=== PATIENT | male | born 2000 | race Caucasian/White ===

== ENCOUNTER 2022-11-14 01:44 | Inpatient (IN) | payer BC ==
[~2022-11-14] VITALS: Ht 188 cm; Wt 80.0 kg
[2022-11-14] MEDS ORDERED: LACTATED RINGER'S 1,000 ML IV ONE (03:00)
[2022-11-14] MEDS ORDERED: MORPHINE SULFATE 4 MG/ML SYR/VIAL IV ONE (03:00)
[2022-11-14] MEDS ORDERED: ONDANSETRON HCL 4 MG/2 ML VIAL IV ONE (03:00)
[2022-11-14] MEDS ORDERED: IOHEXOL 300 MG/ML 100ML BOTTLE IJ ONE (03:04)
[2022-11-14 03:41] LABS: Basophils # (auto) 0.1 10 ^3/uL (0-0.2); Basophils % (auto) 0.6 % (0.0-2.0); Eosinophils # (auto) 0.2 10 ^3/uL (0-0.8); Eosinophils % (auto) 1.2 % (0.0-7.0); Hematocrit 44.5 % (41.0-53.0); Hemoglobin 15.1 g/dL (13.5-17.5); Lymphocytes # (auto) 1.5 10 ^3/uL (0.4-5.4); Mean Corpuscular Volume 85.3 fL (80.0-100.0); Monocytes # (auto) 1.2 10 ^3/uL (0-1.3); Monocytes % (auto) 7.4 % (0.0-12.0); Neutrophils # (auto) 13.3 10 ^3/uL (1.6-8.6); Neutrophils % (auto) 81.8 % (37.0-80.0); Red Blood Cells 5.22 10^6/uL (4.5-5.90); Red Cell Distribution Width 13.9 % (11.8-14.3); White Blood Cell 16.3 10^3/uL (4.4-10.8)
[2022-11-14 03:56] LABS: INR 1.08 (0.9-1.15); Partial Thromboplastin Time 25.6 sec (24.6-33.4)
[2022-11-14 03:58] LABS: Albumin 4.4 g/dL (3.4-5.0); Anion Gap 10 (5-15); Blood Alcohol < 3.0 mg/dL (0-5); Blood Urea Nitrogen 27 mg/dL (7-18); Calcium 9.6 mg/dL (8.5-10.1); Carbon Dioxide 24 mmol/L (21-32); Chloride 103 mmol/L (98-107); Glucose 107 mg/dL (74-106); Lipase 137 U/L (73-393); Potassium 3.5 mmol/L (3.5-5.1); Sodium 137 mmol/L (136-145)
[2022-11-14 04:00] LABS: Alanine Aminotransferase 20 U/L (16-61); Aspartate Aminotransferase 14 U/L (15-37); BUN/Creatinine Ratio 22.5; GFR African American 97 mL/min; GFR Non-African American 80 mL/min
[2022-11-14 04:02] LABS: Alkaline Phosphatase 61 U/L (45-117); Bilirubin, Total 0.4 mg/dL (0.2-1.0)
[2022-11-14 05:05] LABS: Urine Bacteria NONE SEEN /hpf (None Seen); Urine Blood Negative /uL (Negative); Urine Mucus FEW (None Seen); Urine Specific Gravity 1.017 (1.001-1.035); Urine WBC <1 /hpf (0 - 3)
[2022-11-14 05:13] LABS: Alcohol, Urine < 3.0 mg/dL (0-10); Amphetamine Screen, Urine NEGATIVE (NEGATIVE); Barbiturate Scree,Urine NEGATIVE (NEGATIVE); Benzodiazephine Screen, Urine NEGATIVE (NEGATIVE); Cannabinoid Screen, Urine NEGATIVE (NEGATIVE); Cocaine Screen, Urine NEGATIVE (NEGATIVE); Opiate Scree,Urine NEGATIVE (NEGATIVE); Phencyclidine Screen, Urine NEGATIVE (NEGATIVE)
[2022-11-14] MEDS ORDERED: SODIUM CHLORIDE 0.9% 1,000 ML IV SCH (10:45)
[2022-11-14] MEDS ORDERED: ONDANSETRON HCL 4 MG/2 ML VIAL IV PRN (10:45)
[2022-11-14] MEDS ORDERED: MORPHINE SULFATE INJ 2 MG/ml SYRG IV PRN (10:45)
[2022-11-14] MEDS ORDERED: DOCUSATE SOD 100 MG CAP PO PRN (10:45)
[2022-11-14] MEDS ORDERED: TETANUS-DIPTH-ACEL PERTUSSIS 0.5ML SYR Tdap IM ONE (11:00)
[2022-11-14 14:00] VITALS: BP 138/65
[2022-11-14] MEDS ORDERED: NEOMYCIN-BACITRACIN-POLYM 15GM TOP OINT TOP SCH (22:00)
[2022-11-15] MEDS ORDERED: ENOXAPARIN SOD 40 MG/0.4 ML SYRINGE SC SCH (10:00)
[2022-11-15] MEDS ORDERED: PANTOPRAZOLE 40 MG TAB PO SCH (10:00)
== END 2022-11-14 17:15 | disposition left against medical advice (07) | DRG 605 ==
LOC: ER 01:44 → OVERFLOW 10:37
PROVIDERS: ADMIT Nurse Practitioner Family; ATTEND Nurse Practitioner Family
DX: S70.212A Abrasion, left hip, initial encounter (principal); S00.83XA Contusion of other part of head, initial encounter; R33.9 Retention of urine, unspecified; X58.XXXA Exposure to other specified factors, initial encounter; S80.212A Abrasion, left knee, initial encounter; Z20.822 Contact with and (suspected) exposure to COVID-19; Z53.29 Procedure and treatment not carried out because of patient's decision for other reasons; D72.829 Elevated white blood cell count, unspecified; Y93.89 Activity, other specified; Y92.89 Other specified places as the place of occurrence of the external cause; Y99.8 Other external cause status
CPT/HCPCS: 36415; 70450; 71260; 72125; 73502; 74177; 80053; 80307; 80320; 81001; 82553; 83690; 84484; 85025; 85610; 85730; 87426; 90715; 96361; 96374; 96375; G0378; J2405